=== PATIENT | male | born 1945 | race African-American/Black ===

== ENCOUNTER 2022-03-27 23:25 | Observation (INO) | payer OTHER ==
[2022-03-27 23:43] VITALS: BMI 25.8
[2022-03-28 00:45] LABS: BASO % 0.6 % (0-2.0); EOS % 3.2 % (0-4.5); HEMATOCRIT 42.1 % (35.4-49); LYMPH % 20.2 % (8-40); MCH 29.9 pg (25.7-33.7); MCHC 33.3 g/dl (32.0-35.9); MEAN CELL VOLUME 89.6 fl (80-96); MEAN PLT VOLUME 7.7 fl (7.5-11.1); MONO % 9.8 % (3.8-10.2); NEUT % 66.2 % (42.8-82.8); PLATELET COUNT 198 10^3/uL (134-434); RDW 13.7 % (11.9-15.9); WHITE BLOOD COUNT 4.8 K/mm3 (4.0-10.0)
[2022-03-28 01:01] LABS: CALCIUM 9.5 mg/dL (8.5-10.1)
[2022-03-28 01:02] LABS: ALBUMIN 3.7 g/dl (3.4-5.0); BLOOD UREA NITROGEN 21.7 mg/dL (7-18); MAGNESIUM 2.2 mg/dL (1.8-2.4)
[2022-03-28 01:04] LABS: CREATININE 1.6 mg/dL (0.55-1.3)
[2022-03-28 01:05] LABS: PHOSPHOROUS 2.4 mg/dL (2.5-4.9)
[2022-03-28 01:06] LABS: BILIRUBIN,TOTAL 0.3 mg/dL (0.2-1); TOT PROT 7.2 g/dl (6.4-8.2)
[2022-03-28] MEDS ORDERED: SODIUM CHLORIDE 0.9% 500 ML INFUS.BAG IV ONE (03:20)
[2022-03-28] MEDS ORDERED: POLYETHYLENE GLYCOL (HEALTHYLAX) 3350 17 GM PACKET PO PRN (03:21)
[2022-03-28] MEDS ORDERED: ACETAMINOPHEN 325 MG TABLET (FP) PO PRN (03:21)
[2022-03-28] MEDS: SODIUM CHLORIDE 1,000 ML IV SCH (05:00)
[2022-03-28] MEDS: INSULIN SLIDING SCALE (NOVOLOG) 1 VIAL SQ SCH ×4 (07:01→21:30)
[2022-03-28 08:42] LABS: PH,URINE 7.5 (5.0-8.0); URINE APPEARANCE CLEAR; URINE BILIRUBIN NEGATIVE (NEGATIVE); URINE COLOR YELLOW; URINE GLUCOSE (UA) NEGATIVE (NEGATIVE); URINE KETONE NEGATIVE (NEGATIVE); URINE LEUK ESTERASE NEGATIVE (NEGATIVE); URINE NITRITE NEGATIVE (NEGATIVE); URINE PROTEIN NEGATIVE (NEGATIVE)
[2022-03-28 08:47] LABS: EPI CELLS 1 /uL (0-25.1); HYALINE CASTS 0 /uL (0-3.1); URINE BACTERIA 0 /uL (0-1359); URINE RBC 1 /uL (0-23.9); URINE WBC 1 /uL (0-25.8)
[2022-03-28] MEDS ORDERED: LISINOPRIL 5 MG TABLET PO SCH ×2 (10:00→14:05)
[2022-03-28] MEDS: DONEPEZIL HCL 5 MG TABLET (FP) PO SCH (10:56)
[2022-03-28] MEDS: FERROUS SO4 325 MG TABLET (FP) PO SCH (10:56)
[2022-03-28] MEDS: CITALOPRAM HYDROBROMIDE 10 MG TABLET PO SCH (13:11)
[2022-03-28] MEDS: NAPH,MB-DB/K PH,MBDB POWDER PACKET PO SCH ×2 (15:23→21:31)
[2022-03-29] MEDS: INSULIN SLIDING SCALE (NOVOLOG) 1 VIAL SQ SCH ×2 (06:19→10:59)
[2022-03-29] MEDS: SODIUM CHLORIDE 1,000 ML IV SCH (06:19)
[2022-03-29 07:28] LABS: BASO % 0.4 % (0-2.0); EOS % 3.4 % (0-4.5); HEMATOCRIT 39.1 % (35.4-49); HEMOGLOBIN 12.9 GM/dL (11.7-16.9); MCH 29.7 pg (25.7-33.7); MCHC 33.1 g/dl (32.0-35.9); MEAN CELL VOLUME 89.7 fl (80-96); MEAN PLT VOLUME 7.7 fl (7.5-11.1); MONO % 13.4 % (3.8-10.2); NEUT % 59.8 % (42.8-82.8); PLATELET COUNT 170 10^3/uL (134-434); RBC 4.36 M/mm3 (4.00-5.60); WHITE BLOOD COUNT 3.8 K/mm3 (4.0-10.0)
[2022-03-29 07:49] LABS: CALCIUM 8.7 mg/dL (8.5-10.1)
[2022-03-29 07:50] LABS: ALBUMIN 3.1 g/dl (3.4-5.0); BLOOD UREA NITROGEN 22.4 mg/dL (7-18)
[2022-03-29 07:52] LABS: CREATININE 1.3 mg/dL (0.55-1.3)
[2022-03-29 07:54] LABS: BILIRUBIN,TOTAL 0.4 mg/dL (0.2-1); TOT PROT 6.1 g/dl (6.4-8.2)
[2022-03-29 10:33] VITALS: BP 101/59; PULSE 58; TEMP 98.7
[2022-03-29] MEDS: FERROUS SO4 325 MG TABLET (FP) PO SCH (10:37)
[2022-03-29] MEDS: DONEPEZIL HCL 5 MG TABLET (FP) PO SCH (10:42)
[2022-03-29] MEDS: CITALOPRAM HYDROBROMIDE 10 MG TABLET PO SCH (10:42)
== END 2022-03-29 15:04 | disposition short-term general hospital (02) ==
LOC: EDSEX → EDBD → JER 23:25 → MERGE 03-28 02:34 → UNMERGE 03-28 02:34 → JERBED 03-28 02:34 → J4W 03-28 07:42
PROVIDERS: ADMIT Hospitalist; ATTEND Internal Medicine
PROC: 3E0337Z Introduction of Electrolytic and Water Balance Substance into Peripheral Vein, Percutaneous Approach (ICD-10-PCS; principal; 2022-03-28)
DX: N17.9 Acute kidney failure, unspecified (principal); R94.4 Abnormal results of kidney function studies; R77.8 Other specified abnormalities of plasma proteins; D64.9 Anemia, unspecified; R73.03 Prediabetes; F32.9 Major depressive disorder, single episode, unspecified; R55 Syncope and collapse; I10 Essential (primary) hypertension; F03.90 Unspecified dementia, unspecified severity, without behavioral disturbance, psychotic disturbance, mood disturbance, and anxiety; W18.39XA Other fall on same level, initial encounter; Y93.89 Activity, other specified; Y92.098 Other place in other non-institutional residence as the place of occurrence of the external cause; K29.70 Gastritis, unspecified, without bleeding
CPT/HCPCS: 36415; 70450-TC; 71045-TC-FY; 72125-TC; 80048; 80053; 81003; 82550; 82962; 83036; 83735; 84100; 84443; 84484; 85025; 87086; 93005; 93010; 93306-TC; 96360; 97116-GP; 97161-GP; 99285-25; C9803-CS; G0378; U0003; U0005